=== PATIENT | female | born 1945 | race Caucasian/White ===

== ENCOUNTER 2017-08-29 13:21 | Observation (INO) | payer MEDICARE, OTHER ==
[~2017-08-29] VITALS: Ht 167.6 cm; Wt 49.0 kg
[~2017-08-29 13:21] MED LIST: Z.0.NO CURRENT MEDS
[2017-08-29 13:36] VITALS: BP 167/102; PULSE 110; RESP 22; TEMP 98.7; O2SAT 94
--- NOTE | 2017-08-29 13:44 | PD ---
HPI Chief Complaint: Medical Clearance Time Seen by Provider: 13:41 Travel History International Travel<30 days: No Contact w/Intl Traveler<30days: No Traveled to known affect area: No History of Present Illness HPI 72-year-old female patient presents to the ER today for medical clearance from [facility], apparently is a chronic alcoholic, was found in a pool of her own urine, disoriented, not able to take care of herself at home. She currently has no complaints. Modifying Factors: None Associated Signs & Symptoms: Medical clearance, disorientation Risk Factors: History of alcohol use PFSH Social History Tobacco Use: No Allergies-Medications (Allergen,Severity, Reaction): Coded Allergies: penicillin G (Unverified Allergy, Severe, RASH, 08/29/17) Reported Meds & Prescriptions Reported Meds & Active Scripts Active Review of Systems ROS Limitations: Altered Mental Status Physical Exam Narrative GENERAL: Well-developed pleasant elderly white female patient currently none acute distress. Awake, alert, not oriented. SKIN: Focused skin assessment warm/dry. HEAD: Atraumatic. Normocephalic. EYES: Pupils equal and round. No scleral icterus. No injection or drainage. ENT: No nasal bleeding or discharge. Mucous membranes pink and moist. NECK: Trachea midline. No JVD. CARDIOVASCULAR: Regular rate and rhythm. No murmur appreciated. RESPIRATORY: No accessory muscle use. Clear to auscultation. Breath sounds equal bilaterally. GASTROINTESTINAL: Abdomen soft, non-tender, nondistended. Hepatic and splenic margins not palpable. MUSCULOSKELETAL: No obvious deformities. No clubbing. No cyanosis. Trace pitting edema the legs. NEUROLOGICAL: Awake and alert. No obvious cranial nerve deficits. Motor grossly within normal limits. Normal speech. PSYCHIATRIC: Appropriate mood and affect; insight and judgment normal. Data Data Last Documented VS Vital Signs Date Time Temp Pulse Resp B/P (MAP) Pulse Ox O2 Delivery O2 Flow Rate FiO2 08/29/17 13:46 94 Room Air 08/29/17 13:42 112 22 08/29/17 13:36 98.7 167/102 (123) Orders Orders Electrocardiogram (08/29/17 13:41) Ammonia (08/29/17 13:41) Complete Blood Count With Diff (08/29/17 13:41) Comprehensive Metabolic Panel (08/29/17 13:41) Creatine Kinase (Cpk) (08/29/17 13:41) Troponin I (08/29/17 13:41) Thyroid Stimulating Hormone (08/29/17 13:41) Urinalysis - C+S If Indicated (08/29/17 13:41) Blood Culture (08/29/17 13:41) Chest, Single Ap (08/29/17 13:41) Ct Brain W/O Iv Contrast(Rout) (08/29/17 13:41) Blood Glucose (08/29/17 13:41) Ecg Monitoring (08/29/17 13:41) Iv Access Insert/Monitor (08/29/17 13:41) Oximetry (08/29/17 13:41) Sodium Chloride 0.9% Flush (Ns Flush) (08/29/17 13:45) Drug Screen, Random Urine (08/29/17 13:41) Alcohol (Ethanol) (08/29/17 13:41) Sodium Chlorid 0.9% 500 Ml Inj (Ns 500 M (08/29/17 15:15) Cath For Specimen (08/29/17 16:35) Ceftriaxone Inj (Rocephin Inj) (08/29/17 16:51) Azithromycin Inj (Zithromax Inj) (08/29/17 16:51) Admit Order (Ed Use Only) (08/29/17 17:06) Labs Laboratory Tests Test 08/29/17 13:55 08/29/17 16:45 White Blood Count 12.6 TH/MM3 Red Blood Count 3.61 MIL/MM3 Hemoglobin 13.5 GM/DL Hematocrit 39.3 % Mean Corpuscular Volume 108.6 FL Mean Corpuscular Hemoglobin 37.5 PG Mean Corpuscular Hemoglobin Concent 34.5 % Red Cell Distribution Width 14.9 % Platelet Count 274 TH/MM3 Mean Platelet Volume 7.4 FL Neutrophils (%) (Auto) 81.6 % Lymphocytes (%) (Auto) 6.2 % Monocytes (%) (Auto) 11.6 % Eosinophils (%) (Auto) 0.1 % Basophils (%) (Auto) 0.5 % Neutrophils # (Auto) 10.3 TH/MM3 Lymphocytes # (Auto) 0.8 TH/MM3 Monocytes # (Auto) 1.5 TH/MM3 Eosinophils # (Auto) 0.0 TH/MM3 Basophils # (Auto) 0.1 TH/MM3 CBC Comment DIFF FINAL Differential Comment Blood Urea Nitrogen 9 MG/DL Creatinine 0.48 MG/DL Random Glucose 99 MG/DL Total Protein 7.3 GM/DL Albumin 2.9 GM/DL Calcium Level 8.5 MG/DL Alkaline Phosphatase 147 U/L Aspartate Amino Transf (AST/SGOT) 24 U/L Alanine Aminotransferase (ALT/SGPT) 17 U/L Total Bilirubin 0.5 MG/DL Sodium Level 136 MEQ/L Potassium Level 4.5 MEQ/L Chloride Level 101 MEQ/L Carbon Dioxide Level 24.9 MEQ/L Anion Gap 10 MEQ/L Estimat Glomerular Filtration Rate 128 ML/MIN Ammonia 34 MCMOL/L Total Creatine Kinase 41 U/L Troponin I LESS THAN 0.02 NG/ML Thyroid Stimulating Hormone 3rd Gen 1.390 uIU/ML Ethyl Alcohol Level 16 MG/DL Urine Color YELLOW Urine Turbidity CLOUDY Urine pH 7.5 Urine Specific [place] 1.021 Urine Protein 30 mg/dL Urine Glucose (UA) NEG mg/dL Urine Ketones 10 mg/dL Urine Occult Blood SMALL Urine Nitrite NEG Urine Bilirubin NEG Urine Urobilinogen 8.0 MG/DL Urine Leukocyte Esterase LARGE Urine RBC 25 /hpf Urine WBC /hpf Urine WBC Clumps OCC Urine Squamous Epithelial Cells 1 /hpf Urine Transitional Epithelial Cells 1 /hpf Urine Amorphous Sediment RARE Urine Bacteria MANY /hpf Urine Mucus FEW /lpf Microscopic Urinalysis Comment CATH-CULTURE IND MDM Medical Decision Making Medical Screen Exam Complete: Yes Emergency Medical Condition: Yes Medical Record Reviewed: Yes Interpretation(s) Laboratory Tests Test 08/29/17 13:55 08/29/17 16:45 White Blood Count 12.6 TH/MM3 (4.0-11.0) Red Blood Count 3.61 MIL/MM3 (4.00-5.30) Mean Corpuscular Volume 108.6 FL (80.0-100.0) Mean Corpuscular Hemoglobin 37.5 PG (27.0-34.0) Neutrophils (%) (Auto) 81.6 % (16.0-70.0) Lymphocytes (%) (Auto) 6.2 % (9.0-44.0) Monocytes (%) (Auto) 11.6 % (0.0-8.0) Neutrophils # (Auto) 10.3 TH/MM3 (1.8-7.7) Lymphocytes # (Auto) 0.8 TH/MM3 (1.0-4.8) Monocytes # (Auto) 1.5 TH/MM3 (0-0.9) Creatinine 0.48 MG/DL (0.50-1.00) Albumin 2.9 GM/DL (3.4-5.0) Alkaline Phosphatase 147 U/L (45-117) Ammonia 34 MCMOL/L (11-32) Troponin I LESS THAN 0.02 NG/ML Ethyl Alcohol Level 16 MG/DL (0-5) Urine Turbidity CLOUDY (CLEAR) Urine Protein 30 mg/dL (NEG-TRACE) Urine Ketones 10 mg/dL (NEG) Urine Occult Blood SMALL (NEG) Urine Urobilinogen 8.0 MG/DL (LESS THAN Urine Leukocyte Esterase LARGE (NEG) Urine RBC 25 /hpf (0-3) Urine WBC Clumps OCC (NONE) Urine Bacteria MANY /hpf (NONE) Urine Mucus FEW /lpf (OCC) Last [address] 08/29/17 1341 Signed Impressions: Service Date/Time: Tuesday, August 29, 2017 14:07 - CONCLUSION: No acute intracranial findings Franklyn Blanco MD Chest X-Ray 08/29/17 1341 Signed Impressions: Service Date/Time: Tuesday, August 29, 2017 14:55 - CONCLUSION: Moderate hyperinflation, minimal parenchymal changes left base. Dashawn Summers MD FACR Differential Diagnosis Altered mental status: Dementia versus dehydration versus sepsis versus metabolic issues Narrative Course Patient has no focal neurological deficits. CT scan of the brain is negative. Lab work shows leukocytosis and UTI and chest x-rays showing signs of a left- sided pneumonia. IV antibiotic's were initiated in the ER after cultures are drawn. Plan would be to admit the patient for further treatment. Case is discussed with Dr. Solares for admission. Diagnosis Primary Impression: Altered mental status Additional Impression: UTI (urinary tract infection) Admitting Information Admitting Physician Requests: Admit Scripts No Active Prescriptions or Reported Meds Chandra Crews MD Aug 29, 2017 13:44
[2017-08-29] MEDS ORDERED: SODIUM CHLORIDE 0.9% FLUSH 10 ML FLUSH IV FLUSH PRN (13:45)
[2017-08-29 13:46] VITALS: O2SAT 94
[2017-08-29 14:27] LABS: AUTOMATED NEUTROPHIL # 10.3 TH/MM3 (1.8-7.7); BASOPHIL # 0.1 TH/MM3 (0-0.2); BASOPHIL % 0.5 % (0.0-2.0); EOSINOPHIL % 0.1 % (0.0-4.0); HEMATOCRIT 39.3 % (35.0-46.0); HEMO FLAGS DIFF FINAL; LYMPH % 6.2 % (9.0-44.0); LYMPHOCYTE # 0.8 TH/MM3 (1.0-4.8); MEAN CELL VOLUME 108.6 FL (80.0-100.0); MEAN CORPUSCULAR HEMOGLOBIN 37.5 PG (27.0-34.0); MEAN CORPUSCULAR HGB CONC 34.5 % (32.0-36.0); MONO % 11.6 % (0.0-8.0); NEUT % 81.6 % (16.0-70.0); PLATELET COUNT 274 TH/MM3 (150-450); RED BLOOD COUNT 3.61 MIL/MM3 (4.00-5.30); RED CELL DISTRIBUTION WIDTH 14.9 % (11.6-17.2); WHITE BLOOD COUNT 12.6 TH/MM3 (4.0-11.0)
--- NOTE | 2017-08-29 14:31 | RADRPT ---
EXAM DATE/TIME: 08/29/2017 14:07 [facility] COMPARISON: No previous studies available for comparison. INDICATIONS : Alteration of mental status RADIATION DOSE: 56.35 CTDIvol (mGy) MEDICAL HISTORY : None SURGICAL HISTORY : Appendectomy. ENCOUNTER: Initial ACUITY: 2 days PAIN SCALE: 0/10 LOCATION: cranial TECHNIQUE: Multiple contiguous axial images were obtained of the head. Using automated exposure control and adj ustment of the mA and/or kV according to patient size, radiation dose was kept as low as reasonably a chievable to obtain optimal diagnostic quality images. DICOM format image data is available electro nically for review and comparison. 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 This patchy mild attenuation in periv entricular white matter. There is no evidence of intracranial hemorrhage or mass. There is nothing to suggest acute infarction. Extracranial structures are benign in intact. CONCLUSION: No acute intracranial findings Franklyn Blanco MD on August 29, 2017 at 14:26 Board Certified Radiologist. This report was verified electronically.
--- NOTE | 2017-08-29 15:02 | RADRPT ---
EXAM DATE/TIME: 08/29/2017 14:55 [facility] COMPARISON: No previous studies available for comparison. INDICATIONS : Palpitations. Patient complains of shortness of breath. MEDICAL HISTORY : None. SURGICAL HISTORY : None. ENCOUNTER: Initial ACUITY: 1 day PAIN SCORE: 0/10 LOCATION: Bilateral chest FINDINGS: Moderate hyperinflation with minimal parenchymal changes left base. Negative for pneumothorax.. The cardiomediastinal contours are unremarkable. Osseous structures are intact. CONCLUSION: Moderate hyperinflation, minimal parenchymal changes left base. Dashawn Summers MD FACR on August 29, 2017 at 14:58 Board Certified Radiologist. This report was verified electronically.
[2017-08-29] MEDS ORDERED: SODIUM CHLORID 0.9% 500 ML INJ 500 ML IV ONE (15:15)
[2017-08-29 16:21] LABS: ALCOHOL 16 MG/DL (0-5); ALKALINE PHOSPHATASE 147 U/L (45-117); ALT (GPT) 17 U/L (10-53); ANION GAP 10 MEQ/L (5-15); AST (GOT) 24 U/L (15-37); BICARBONATE 24.9 MEQ/L (21.0-32.0); BLOOD UREA NITROGEN 9 MG/DL (7-18); CHLORIDE 101 MEQ/L (98-107); CREATINE KINASE 41 U/L (26-192); GLOMERULAR FILTRATION RATE 128 ML/MIN (>89); POTASSIUM 4.5 MEQ/L (3.5-5.1); SODIUM (NA) 136 MEQ/L (136-145); TOTAL BILIRUBIN ADULT 0.5 MG/DL (0.2-1.0)
[2017-08-29] MEDS ORDERED: cefTRIAXone INJ 2,000 MG in SODIUM CHLORIDE 0.9% INJ 100 ML IV STA (16:51)
[2017-08-29] MEDS ORDERED: AZITHROMYCIN INJ 500 MG in SODIUM CHLOR 0.9% 250 ML INJ 250 ML IV STA (16:51)
[2017-08-29] MEDS ORDERED: ACETAMINOPHEN 325 MG TAB PO PRN (17:15)
[2017-08-29] MEDS ORDERED: ONDANSETRON HCL 4 MG/2 ML VIAL IV PUSH PRN (17:15)
[2017-08-29] MEDS ORDERED: LORazepam 2 MG/ML VIAL IV PUSH PRN ×4 (17:15)
[2017-08-29] MEDS ORDERED: FLUMAZENIL 0.5 MG/5 ML VIAL IV PUSH PRN (17:15)
[2017-08-29] MEDS ORDERED: LORazepam 1 MG TAB PO PRN (17:15)
[2017-08-29] MEDS ORDERED: LORazepam 2 MG TAB PO PRN (17:15)
[2017-08-29 17:16] LABS: BACTERIA, URINE MANY /hpf; BLOOD, URINE SMALL (NEG); COMMENT (UR) CATH-CULTURE IND; CULTURE IF INDICATED CATH CULTURE IND; GLUCOSE,URINE NEG (NEG); KETONE, URINE 10 mg/dL (NEG); MUCUS URINE FEW /lpf (OCC); NITRITE,URINE NEG (NEG); PH, URINE 7.5 (5.0-8.5); SQUAMOUS EPITHELIAL CELL URINE 1 /hpf (0-5); TRANSITIONAL EPI CELLS, URINE 1 /hpf; URINE COLOR YELLOW (YELLW/STRAW)
[2017-08-29] MEDS ORDERED: SODIUM CHLOR 0.9% 1000 ML INJ 1,000 ML IV ONE (17:30)
--- NOTE | 2017-08-29 17:37 | HHI.HP ---
HPI Service [facility] Primary Care Physician Unknown Admission Diagnosis pneumonia/sepsis/altered mental status Diagnoses: Chief Complaint: was sent to ER from [facility] for medical clearance. Travel History International Travel<30 Days: No Contact w/Intl Traveler <30 Da: No Traveled to Known Affected Are: No History of Present Illness 72-year-old female patient , chronic alcoholic, sent to ER from [facility] for medical clearance. reportedly she drinks one bottle of wine daily. apparently she was found disoriented, sitting in a pool of her urine earlier. at the time of my evaluation she was resting comfortably with no acute distress. she denies any pain, sob,fever, chills,cough, abdominal pain, nausea or urinary complaints. Review of Systems ROS Limitations: Poor Historian Past Family Social History Past Medical History none reported. Past Surgical History none reported. Reported Medications none. Allergies: Coded Allergies: penicillin G (Unverified Allergy, Severe, RASH, 08/29/17) Active Ordered Medications Current Medications Sodium Chloride (NS Flush) 2 ml UNSCH PRN IV FLUSH FLUSH AFTER USING IV ACCESS ; Start 08/29/17 at 13:45 Sodium Chloride 500 ml @ 500 mls/hr BOLUS ONCE IV Last administered on t 15:25; Start 08/29/17 at 15:15; Stop 08/29/17 at 16:14; Status DC Ceftriaxone Sodium 2000 mg/ Sodium Chloride 100 ml @ 200 mls/hr ONCE STAT IV ; Start 08/29/17 at 16:51; Stop 08/29/17 at 17:20 Azithromycin 500 mg/Sodium Chloride 250 ml @ 250 mls/hr ONCE STAT IV ; Start 08/29/17 at 16:51; Stop 08/29/17 at 17:50 Social History drinks one bottle of wine daily; last drink last night- smokes half a pack a day. Physical Exam Vital Signs Vital Signs Date Time Temp Pulse Resp B/P (MAP) Pulse Ox O2 Delivery O2 Flow Rate FiO2 08/29/17 13:46 94 Room Air 08/29/17 13:42 112 22 08/29/17 13:36 98.7 110 22 167/102 (123 94 Physical Exam GENERAL: This is a well-nourished, well-developed patient, in no apparent distress. HEAD: Atraumatic. Normocephalic. No temporal or scalp tenderness. EYES: Pupils equal round and reactive. Extraocular motions intact. No scleral icterus. No injection or drainage. ENT: Nose without bleeding, purulent drainage or septal hematoma. Throat without erythema, tonsillar hypertrophy or exudate. Uvula midline. Airway patent. NECK: Trachea midline. No JVD or lymphadenopathy. Supple, nontender, no meningeal signs. CARDIOVASCULAR: Regular rate and rhythm without murmurs, gallops, or rubs. RESPIRATORY: Clear to auscultation. Breath sounds equal bilaterally. No wheezes , rales, or rhonchi. GASTROINTESTINAL: Abdomen soft, non-tender, nondistended. No hepato-splenomegaly , or palpable masses. No guarding. MUSCULOSKELETAL: Extremities without clubbing, cyanosis, or edema. No joint tenderness, effusion, or edema noted. No calf tenderness. Negative Homans sign bilaterally. NEUROLOGICAL: Awake and alert. oriented to person and place . Laboratory Laboratory Tests Test 08/29/17 13:55 08/29/17 16:45 White Blood Count 12.6 Red Blood Count 3.61 Hemoglobin 13.5 Hematocrit 39.3 Mean Corpuscular Volume 108.6 Mean Corpuscular Hemoglobin 37.5 Mean Corpuscular Hemoglobin Concent 34.5 Red Cell Distribution Width 14.9 Platelet Count 274 Mean Platelet Volume 7.4 Neutrophils (%) (Auto) 81.6 Lymphocytes (%) (Auto) 6.2 Monocytes (%) (Auto) 11.6 Eosinophils (%) (Auto) 0.1 Basophils (%) (Auto) 0.5 Neutrophils # (Auto) 10.3 Lymphocytes # (Auto) 0.8 Monocytes # (Auto) 1.5 Eosinophils # (Auto) 0.0 Basophils # (Auto) 0.1 CBC Comment DIFF FINAL Differential Comment Blood Urea Nitrogen 9 Creatinine 0.48 Random Glucose 99 Total Protein 7.3 Albumin 2.9 Calcium Level 8.5 Alkaline Phosphatase 147 Aspartate Amino Transf (AST/SGOT) 24 Alanine Aminotransferase (ALT/SGPT) 17 Total Bilirubin 0.5 Sodium Level 136 Potassium Level 4.5 Chloride Level 101 Carbon Dioxide Level 24.9 Anion Gap 10 Estimat Glomerular Filtration Rate 128 Ammonia 34 Total Creatine Kinase 41 Troponin I LESS THAN 0.02 Thyroid Stimulating Hormone 3rd Gen 1.390 Ethyl Alcohol Level 16 Urine Color YELLOW Urine Turbidity CLOUDY Urine pH 7.5 Urine Specific [place] 1.021 Urine Protein 30 Urine Glucose (UA) NEG Urine Ketones 10 Urine Occult Blood SMALL Urine Nitrite NEG Urine Bilirubin NEG Urine Urobilinogen 8.0 Urine Leukocyte Esterase LARGE Urine RBC 25 Urine WBC Urine WBC Clumps OCC Urine Squamous Epithelial Cells 1 Urine Transitional Epithelial Cells 1 Urine Amorphous Sediment RARE Urine Bacteria MANY Urine Mucus FEW Microscopic Urinalysis Comment CATH-CULTURE IND Date/Time Source Procedure Growth Status 08/29/17 13:55 Blood Peripheral Aerobic Blood Culture Pending Received 08/29/17 13:55 Blood Peripheral Anaerobic Blood Culture Pending Received 08/29/17 16:45 Urine Catheterized Urine Urine Culture Pending Received Result Diagram: 08/29/17 1355 08/29/17 1355 Imaging Last Impressions Head CT 08/29/17 1341 Signed Impressions: Service Date/Time: Tuesday, August 29, 2017 14:07 - CONCLUSION: No acute intracranial findings Franklyn Blanco MD Chest X-Ray 08/29/17 1341 Signed Impressions: Service Date/Time: Tuesday, August 29, 2017 14:55 - CONCLUSION: Moderate hyperinflation, minimal parenchymal changes left base. Dashawn Summers MD FACR Caprini VTE Risk Assessment Caprini VTE Risk Assessment: Mod/High Risk (score >= 2) Caprini Risk Assessment Model Point Value = 1 Point Value = 2 Point Value = 3 Point Value = 5 Age 41-60 Minor surgery BMI > 25 kg/m2 Swollen legs Varicose veins or History of unexplained or recurrent spontaneous Oral contraceptives or hormone replacement Sepsis (< 1 month) Serious lung disease, including pneumonia (< 1 month) Abnormal pulmonary function Acute myocardial infarction Congestive heart failure (< 1 month) History of inflammatory bowel disease Medical patient at bed rest Age 61-74 Arthroscopic surgery Major open surgery (> 45 min) Laparoscopic surgery (> 45 min) Malignancy Confined to bed (> 72 hours) Immobilizing plaster cast Central venous access Age >= 75 History of VTE Family history of VTE Factor V Leiden Prothrombin [id number] Lupus anticoagulant Anticardiolipin antibodies Elevated serum homocysteine Heparin-induced thrombocytopenia Other congenital or acquired thrombophilia Stroke (< 1 month) Elective arthroplasty Hip, pelvis, or leg fracture Acute spinal cord injury (< 1 month) Prophylaxis Regimen Total Risk Factor Score Risk Level Prophylaxis Regimen 0-1 Low Early ambulation 2 Moderate Order ONE of the following: *Sequential Compression Device (SCD) *Heparin 5000 units SQ BID 3-4 Higher Order ONE of the following medications: *Heparin 5000 units SQ TID *Enoxaparin/Lovenox 40 mg SQ daily (WT < 150 kg, CrCl > 30 mL/min) *Enoxaparin/Lovenox 30 mg SQ daily (WT < 150 kg, CrCl > 10-29 mL/min) *Enoxaparin/Lovenox 30 mg SQ BID (WT < 150 kg, CrCl > 30 mL/min) AND/OR *Sequential Compression Device (SCD) 5 or more Highest Order ONE of the following medications: *Heparin 5000 units SQ TID (Preferred with Epidurals) *Enoxaparin/Lovenox 40 mg SQ daily (WT < 150 kg, CrCl > 30 mL/min) *Enoxaparin/Lovenox 30 mg SQ daily (WT < 150 kg, CrCl > 10-29 mL/min) *Enoxaparin/Lovenox 30 mg SQ BID (WT < 150 kg, CrCl > 30 mL/min) AND *Sequential Compression Device (SCD) Assessment and Plan Assessment and Plan A/P 72 y/o female, chronic alcoholic, who was referred to ER from [facility] for medical clearance; - alcohol abuse watch for withdrawal- start on CIWA protocol- start on thiamine/ multivitamin. advised to stop drinking. -UTI start on Levaquin and follow the culture. -questionable LLL pneumonia start on Levaquin- follow the cultures- will monitor temps- repeat CBC in am. -consult PT -consult case management to assist with dc planning. -DVT prophylaxis with SCD's Discussed Condition With ER physician and the patient. Salomón Chen MD Aug 29, 2017 17:37
[2017-08-29 17:57] VITALS: BP 144/82; PULSE 105; RESP 20; O2SAT 95
[2017-08-29] MEDS: LEVOFLOXACIN 250 MG PREMIX INJ 50 ML IV SCH (17:59)
[2017-08-29 18:47] VITALS: BP 160/91; PULSE 113; RESP 16; TEMP 98.3; O2SAT 93
[2017-08-29] MEDS: THIAMINE HCL 100 MG TAB PO SCH (19:02)
[2017-08-29 20:35] VITALS: BP 153/91; PULSE 109; RESP 20; TEMP 97.8; O2SAT 94
[2017-08-30 00:19] VITALS: BP 159/89; PULSE 109; RESP 20; TEMP 98; O2SAT 94
[2017-08-30 03:41] VITALS: BP 145/93; PULSE 106; RESP 20; TEMP 98; O2SAT 93
[2017-08-30 07:25] VITALS: BP 149/84; PULSE 97; RESP 18; TEMP 98.1; O2SAT 94
[2017-08-30] MEDS: THIAMINE HCL 100 MG TAB PO SCH (08:50)
[2017-08-30] MEDS: MULTIVITAMIN TAB PO SCH (08:50)
[2017-08-30 10:25] LABS: AUTOMATED NEUTROPHIL # 5.6 TH/MM3 (1.8-7.7); BASOPHIL % 0.4 % (0.0-2.0); EOSINOPHIL % 0.6 % (0.0-4.0); HEMATOCRIT 38.2 % (35.0-46.0); HEMO FLAGS DIFF FINAL; LYMPH % 12.8 % (9.0-44.0); MEAN CELL VOLUME 109.8 FL (80.0-100.0); MEAN CORPUSCULAR HEMOGLOBIN 37.8 PG (27.0-34.0); MEAN CORPUSCULAR HGB CONC 34.4 % (32.0-36.0); MONO % 13.6 % (0.0-8.0); NEUT % 72.6 % (16.0-70.0); PLATELET COUNT 238 TH/MM3 (150-450); RED BLOOD COUNT 3.48 MIL/MM3 (4.00-5.30); RED CELL DISTRIBUTION WIDTH 15.2 % (11.6-17.2); WHITE BLOOD COUNT 7.7 TH/MM3 (4.0-11.0)
[2017-08-30 11:40] VITALS: BP 157/85; PULSE 99; RESP 18; TEMP 97.8; O2SAT 96
--- NOTE | 2017-08-30 11:40 | HHI.PR ---
Subjective Remarks Pt feels better. states that she fell because she was drinking. states she drinks 2 sometimes 3 glasses of wine a day. denies any burning w urination or increase urinary frequency. Objective Vitals Vital Signs Date Time Temp Pulse Resp B/P (MAP) Pulse Ox O2 Delivery O2 Flow Rate FiO2 08/30/17 07:25 98.1 97 18 149/84 (105) 94 08/30/17 03:41 98.0 106 20 145/93 (110) 93 08/30/17 00:19 98.0 109 20 159/89 (112) 94 08/29/17 20:35 97.8 109 20 153/91 (111) 94 08/29/17 18:47 98.3 113 16 160/91 (114) 93 08/29/17 17:57 105 20 144/82 (102) 95 Room Air 08/29/17 13:46 94 Room Air 08/29/17 13:42 112 22 08/29/17 13:36 98.7 110 22 167/102 (123) 94 I/O 08/29/17 08/29/17 08/29/17 08/30/17 08/30/17 08/30/17 07:00 15:00 23:00 07:00 15:00 23:00 Intake Total 500 ml 200 ml Balance 500 ml 200 ml Intake IV Total 500 ml 200 ml # Voids 3 # Bowel Movements 2 Result Diagram: 08/30/17 0915 08/29/17 1355 Imaging Last Impressions Head CT 08/29/17 1341 Signed Impressions: Service Date/Time: Tuesday, August 29, 2017 14:07 - CONCLUSION: No acute intracranial findings Franklyn Blanco MD Chest X-Ray 08/29/17 1341 Signed Impressions: Service Date/Time: Tuesday, August 29, 2017 14:55 - CONCLUSION: Moderate hyperinflation, minimal parenchymal changes left base. Dashawn Summers MD FACR Objective Remarks GENERAL: laying in bed ENT: Nose without drainage. Airway patent. NECK: Trachea midline. CARDIOVASCULAR: Regular rate and rhythm without murmurs RESPIRATORY: some exp wheezing noted, pt also had a mild cough during exam GASTROINTESTINAL: Abdomen soft, non-tender, nondistended. No guarding. MUSCULOSKELETAL: Extremities without edema. No calf tenderness. Negative Homans sign bilaterally. NEUROLOGICAL: Awake and alert. answers my questions. sitter at bedside A/P Assessment and Plan 72 y/o female, chronic alcoholic, who was referred to ER from [facility] for medical clearance; - alcohol abuse watch for withdrawal- on CIWA protocol- on thiamine/folate/multivitamin. Pt has been advised to stop drinking. -UTI on Levaquin and follow cultures. -questionable LLL pneumonia. Pt is coughing and had some wheezing today on Levaquin- follow blood cultures- will monitor temps- added duonebs. Leukocytosis resolved -consult PT- pt uses a cane at home. -consult case management to assist with dc planning. -DVT prophylaxis with SCD's Discharge Planning f/u urine and blood cx. awaiting PT eval. continue medical management. Anticipate d/c in AM if blood cx neg. Korina Arvizu MD Aug 30, 2017 11:40
[2017-08-30] MEDS ORDERED: RESP: ALBUTEROL 2.5 MG/IPRATROPIUM 0.5 MG NEB (PRN) NEB (11:45)
[2017-08-30] MEDS: FOLIC ACID 1 MG TAB PO SCH (12:49)
[2017-08-30 15:33] VITALS: BP 148/80; PULSE 108; RESP 18; TEMP 98.2; O2SAT 95
--- NOTE | 2017-08-30 15:46 | EKG ---
Date Performed: 08/29/2017 Time Performed: 14:43:05 PTAGE: 72 years EKG: SINUS TACHYCARDIA ABNORMAL RHYTHM ECG NO PREVIOUS TRACING DOCTOR: Wesley Renee Interpretating Date/Time 08/30/2017 15:44:59
[2017-08-30] MEDS: LEVOFLOXACIN 250 MG PREMIX INJ 50 ML IV SCH (17:39)
[2017-08-30 20:00] VITALS: BP 140/95; PULSE 111; RESP 20; TEMP 97.7; O2SAT 96
[2017-08-31] VITALS (7 sets, daily range): BP systolic 102–150; BP diastolic 58–82; PULSE 68–107; RESP 16–20; TEMP 97.3–98.7; O2SAT 91–97
[2017-08-31] MEDS ORDERED: guaiFENesin E.R. 600 MG TAB PO ONE (10:00)
[2017-08-31] MEDS: FOLIC ACID 1 MG TAB PO SCH (10:50)
[2017-08-31] MEDS: THIAMINE HCL 100 MG TAB PO SCH (10:50)
[2017-08-31] MEDS: MULTIVITAMIN TAB PO SCH (10:50)
--- NOTE | 2017-08-31 12:18 | HHI.PR ---
Subjective Remarks Written by Yanique Kern, acting as scribe for Dr. Paula on 08/31/17 at 12: 18. Follow-up on patient status post fall, alcohol abuse. Patient seen and examined. Patient states she feels well today. She denies any acute medical complaints. Denies any headache, vision changes or dizziness. Denies any chest pain or shortness of breath. Denies any nausea, vomiting or abdominal pain. Tolerating diet well. She admits that she drinks too much and has done so since she was a teenager. She denies any urinary difficulties, diarrhea or constipation. She lives with her and they help to take care of each other. Objective Vitals Vital Signs Date Time Temp Pulse Resp B/P (MAP) Pulse Ox O2 Delivery O2 Flow Rate FiO2 08/31/17 08:37 97.8 82 18 135/74 (94) 97 08/31/17 04:00 98.0 103 20 148/82 (104) 95 08/31/17 00:00 97.7 107 20 119/65 (83) 94 08/30/17 20:00 97.7 111 20 140/95 (110) 96 08/30/17 15:33 98.2 108 18 148/80 (102) 95 I/O 08/30/17 08/30/17 08/30/17 08/31/17 08/31/17 08/31/17 06:59 14:59 22:59 06:59 14:59 22:59 Intake Total 200 ml 240 ml Balance 200 ml 240 ml Intake Oral 240 ml IV Total 200 ml # Voids 3 2 2 # Bowel Movements 2 2 Result Diagram: 08/30/1715 08/29/17 1355 Imaging Last Impressions Head CT 08/29/17 1341 Signed Impressions: Service Date/Time: Tuesday, August 29, 2017 14:07 - CONCLUSION: No acute intracranial findings Franklyn Blanco MD Chest X-Ray 08/29/17 1341 Signed Impressions: Service Date/Time: Tuesday, August 29, 2017 14:55 - CONCLUSION: Moderate hyperinflation, minimal parenchymal changes left base. Dashawn Summers MD FACR Objective Remarks GENERAL: Well-nourished, well-developed patient in NAD. Awake and alert. Sitting up in bed eating breakfast. Sitter at the bedside. SKIN: Warm and dry. No rash. HEAD: Normocephalic. Atraumatic. EYES: EOMI. No scleral icterus. No injection or drainage. ENT: No nasal bleeding or discharge. Mucous membranes pink and moist. NECK: Supple. Trachea midline. CARDIOVASCULAR: Regular rate and rhythm. S1, S2 noted. No murmur appreciated. RESPIRATORY: Nonlabored. Clear to auscultation. Breath sounds equal bilaterally. GASTROINTESTINAL: Abdomen soft, non-tender, nondistended. Normoactive bowel sounds x4. MUSCULOSKELETAL: No obvious deformities. Extremities without clubbing, cyanosis , or edema. NEUROLOGICAL: Awake and alert. No obvious cranial nerve deficits. Motor grossly within normal limits. 5/5 muscle strength in bilateral upper and lower extremities. Normal speech. PSYCHIATRIC: Appropriate mood and affect; insight and judgment normal. Medications and IVs Current Medications Medications (Trade) Dose Ordered Sig/Jerson Route Start Time Stop Time Status Last Admin (NS Flush) 2 ml UNSCH PRN IV FLUSH 08/29/17 13:45 (Romazicon Inj) 0.2 mg Q1M PRN IV PUSH 08/29/17 17:15 (Ativan) 1 mg Q4H PRN PO 08/29/17 17:15 (Ativan Inj) 1 mg Q4H PRN IV PUSH 08/29/17 17:15 (Ativan) 2 mg Q2H PRN PO 08/29/17 17:15 (Ativan Inj) 2 mg Q2H PRN IV PUSH 08/29/17 17:15 (Ativan Inj) 2 mg Q1H PRN IV PUSH 08/29/17 17:15 (Ativan Inj) 2 mg Q15M PRN IV PUSH 08/29/17 17:15 Levofloxacin/ Dextrose 50 ml @ 50 mls/hr Q24H IV 08/29/17 18:00 08/30/17 17:39 (Tylenol) 650 mg Q4H PRN PO 08/29/17 17:15 (Zofran Inj) 4 mg Q8H PRN IV PUSH 08/29/17 17:15 (Vitamin B1) 100 mg DAILY PO 08/29/17 18:00 08/31/17 10:50 (Theragran) 1 tab DAILY PO 08/30/17 09:00 08/31/17 10:50 (Folate) 1 mg DAILY PO 08/30/17 11:45 08/31/17 10:50 (Duoneb Neb) 1 ampule Q6HR NEB PRN NEB 08/30/17 11:45 (Mucinex Er) 600 mg BID PO 08/31/17 21:00 A/P Problem List: (1) Alcohol abuse ICD Code: F10.10 - Alcohol abuse, uncomplicated (2) UTI (urinary tract infection) ICD Code: N39.0 - Urinary tract infection, site not specified Status: Acute (3) Physical deconditioning ICD Code: R53.81 - Other malaise Assessment and Plan 72 y/o female, chronic alcoholic, who was referred to ER from [facility] for medical clearance; Alcohol abuse Bonilla acted - on [facility] protocol - No s/sxs of withdrawal - Continue thiamine, multivitamin and folic acid daily - Patient advised on complete alcohol abstinence - continue with PT who recommends home with home health PT - patient under BA, Psychiatry consulted to see if BA can be lifted and patient discharged to home CAP - Suspect left lower lobe pneumonia - Treated with Levaquin. Plan to discharge on Cipro 500mg BID x 5 days - Blood cultures show no growth in 2 days - Mucinex ER 600mg BID UTI - Urine culture positive for Klebsiella pansensitive - Begin Cipro Macrocytosis - Secondary to alcohol consumption/abuse DVT prophylaxis - early ambulation - Bilateral ATUL/SCDs Discharge patient to home with home health care PT Condition on discharge: Improved Regular Diet as tolerated Strongly advised on complete alcohol abstinence Ad Jeni activity Rx written: Cipro 500mg BID Follow-up with primary care physician in one week This note was transcribed by noreen Kern. I, Dr. Avtar Paula personally performed the history, physical exam, and medical decision making; and confirmed the accuracy of the information in the transcribed note. Authenticated by Dr. Avtar Paula on 08/31/17 at 12:18. Discharge Planning Discharge pending psych clearance Yanique Kern Aug 31, 2017 12:18 Avtar Paula MD Aug 31, 2017 12:19
--- NOTE | 2017-08-31 13:24 | HHI.FF ---
Face to Face Verification Diagnosis: (1) Physical deconditioning Physical Therapy Order: Evaluate and Treat, Improve ambulation, Strength and gait training I have seen patient Nathalie Yee on 08/31/17. My clinical findings support the need for the requested home health care services because: Deconditioned w/ increased weakness Limited ability to care for self High risk of falls I certify that my clinical findings support that this patient is homebound because: Unsteady gait/balance Unsafe to leave home unassisted Unable to use public transportation Yanique Kern Aug 31, 2017 13:24
[2017-08-31] MEDS ORDERED: THERTAB15 PO (13:33)
[2017-08-31] MEDS ORDERED: THIA100 PO (13:33)
[2017-08-31] MEDS ORDERED: guaiFENesin ER PO (13:33)
[2017-08-31] MEDS ORDERED: CIPR-9 PO (13:33)
[2017-08-31] MEDS ORDERED: FOLI1TAB6 PO (13:33)
--- NOTE | 2017-08-31 13:34 | HHI.DCPOC ---
Discharge Care Plan Diagnosis: (1) Community acquired pneumonia (2) UTI (urinary tract infection) (3) Physical deconditioning (4) Alcohol abuse (5) Altered mental status Goals to Promote Your Health * To prevent worsening of your condition and complications * To maintain your health at the optimal level Directions to Meet Your Goals Please abstain from all alcohol consumption Take your medications as prescribed Follow your dietary instruction Follow activity as directed Keep your appointments as scheduled Take your immunizations and boosters as scheduled If your symptoms worsen call your PCP, if no PCP go to Urgent Care Center or Emergency Room Smoking is Dangerous to Your Health. Avoid second hand smoke Call the 24-hour hour crisis hotline for domestic abuse at Yanique Kern Aug 31, 2017 13:34
[2017-08-31] MEDS: LEVOFLOXACIN 250 MG PREMIX INJ 50 ML IV SCH (18:00)
[2017-08-31] MEDS: CIPROFLOXACIN 500 MG TAB PO SCH (22:34)
[2017-08-31] MEDS: guaiFENesin E.R. 600 MG TAB PO SCH (22:35)
[2017-09-01 00:47] VITALS: RESP 16; O2SAT 93
[2017-09-01 02:00] VITALS: RESP 16; O2SAT 97
[2017-09-01 04:17] VITALS: BP 144/83; PULSE 91; RESP 18; TEMP 98.3; O2SAT 97
[2017-09-01 08:20] VITALS: BP 126/75; PULSE 88; RESP 22; TEMP 98; O2SAT 96
[2017-09-01] MEDS: guaiFENesin E.R. 600 MG TAB PO SCH (10:21)
[2017-09-01] MEDS: FOLIC ACID 1 MG TAB PO SCH (10:21)
[2017-09-01] MEDS: THIAMINE HCL 100 MG TAB PO SCH (10:21)
[2017-09-01] MEDS: CIPROFLOXACIN 500 MG TAB PO SCH (10:22)
[2017-09-01] MEDS: MULTIVITAMIN TAB PO SCH (10:22)
[2017-09-01 12:39] VITALS: BP 138/77; PULSE 92; RESP 22; TEMP 97.6; O2SAT 96
--- NOTE | 2017-09-01 13:41 | HHI.PR ---
Subjective Remarks Follow-up on patient status post fall, alcohol abuse. 08/31/17- Patient seen and examined. Patient states she feels well today. She denies any acute medical complaints. Denies any headache, vision changes or dizziness. Denies any chest pain or shortness of breath. Denies any nausea, vomiting or abdominal pain. Tolerating diet well. She admits that she drinks too much and has done so since she was a teenager. She denies any urinary difficulties, diarrhea or constipation. She lives with her and they help to take care of each other. 09/01/17-patient seen and examined, stable and no complaints. Awaiting for evaluation from psychiatry. Sitter in the room Objective Vitals Vital Signs Date Time Temp Pulse Resp B/P (MAP) Pulse Ox O2 Delivery O2 Flow Rate FiO2 09/01/17 12:39 97.6 92 22 138/77 (97) 96 09/01/17 08:20 98.0 88 22 126/75 (92) 96 09/01/17 04:17 98.3 91 18 144/83 (103) 97 09/01/17 02:00 16 97 09/01/17 00:47 93 Nasal Cannula 2.00 09/01/17 00:47 16 93 08/31/17 23:18 98.7 68 18 102/58 (73) 91 08/31/17 20:31 98.2 78 18 108/63 (78) 92 08/31/17 16:28 97.3 96 16 148/82 (104) 95 I/O 08/31/17 08/31/17 08/31/17 09/01/17 09/01/17 09/01/17 07:00 15:00 23:00 07:00 15:00 23:00 Intake Total 240 ml 240 ml Balance 240 ml 240 ml Intake Oral 240 ml 240 ml # Voids 2 2 # Bowel Movements 0 Result Diagram: 08/30/17 0915 08/29/17 1355 Imaging Last Impressions Head CT 08/29/17 1341 Signed Impressions: Service Date/Time: Tuesday, August 29, 2017 14:07 - CONCLUSION: No acute intracranial findings Franklyn Blanco MD Chest X-Ray 08/29/17 1341 Signed Impressions: Service Date/Time: Tuesday, August 29, 2017 14:55 - CONCLUSION: Moderate hyperinflation, minimal parenchymal changes left base. Dashawn Summers MD FACR Objective Remarks GENERAL: NAD SKIN: Warm and dry. HEAD: Normocephalic. EYES: No scleral icterus. No injection or drainage. NECK: Supple, trachea midline. No JVD or lymphadenopathy. CARDIOVASCULAR: Regular rate and rhythm without murmurs, gallops, or rubs. RESPIRATORY: Breath sounds equal bilaterally. No accessory muscle use. GASTROINTESTINAL: Abdomen soft, non-tender, nondistended. MUSCULOSKELETAL: No cyanosis, or edema. BACK: Nontender without obvious deformity. No CVA tenderness. A/P Problem List: (1) Alcohol abuse ICD Code: F10.10 - Alcohol abuse, uncomplicated (2) UTI (urinary tract infection) ICD Code: N39.0 - Urinary tract infection, site not specified Status: Acute (3) Physical deconditioning ICD Code: R53.81 - Other malaise Assessment and Plan 72 y/o female, chronic alcoholic, who was referred to ER from [facility] for medical clearance; Alcohol abuse - on [facility] protocol - No s/sxs of withdrawal - Continue thiamine, multivitamin and folic acid daily - Patient advised on complete alcohol abstinence - continue with PT who recommends home with home health PT - Patient is currently Bonilla acted, awaiting for recommendation from psychiatry CAP - Suspect left lower lobe pneumonia - Treated with Levaquin. Plan to discharge on Cipro 500mg BID x 5 days - Blood cultures show no growth in 3 days - Mucinex ER 600mg BID UTI - Urine culture positive for Klebsiella pansensitive - Continue Cipro Macrocytosis - Secondary to alcohol consumption/abuse DVT prophylaxis - early ambulation - Bilateral ATUL/SCDs Avtar Paula MD Sep 01, 2017 13:40
--- NOTE | 2017-09-01 14:54 | HHI.FF ---
Face to Face Verification Diagnosis: (1) Alcohol abuse (2) Physical deconditioning (3) Community acquired pneumonia (4) UTI (urinary tract infection) Physical Therapy Order: Evaluate and Treat, Improve ambulation Home Health Nursing Order: Medical education Signs/symptoms of disease process Nursing assessment with vital signs Pearl Restorer Order: To Evaluate: Living conditions/environment, Support services Order: To Provide: Long range planning, Community services I have seen patient Nathalie Yee on 09/01/17. My clinical findings support the need for the requested home health care services because: Ltd mobility - disease progression Deconditioned w/ increased weakness Med compliance is questionable Limited ability to care for self Need for psychosocial assistance High risk of falls I certify that my clinical findings support that this patient is homebound because: Unsteady gait/balance Unsafe to leave home unassisted Need for psychosocial assistance Unable to use public transportation Alisha Peña PA-C Sep 01, 2017 14:54
[2017-09-01 16:33] VITALS: BP 141/70; PULSE 97; RESP 18; TEMP 97.5; O2SAT 95
== END 2017-09-01 16:35 | disposition home or self-care (01) ==
LOC: NEPD 13:21 → NEDA 17:07 → NEPHCDU 18:43
PROVIDERS: ADMIT Hospitalist; ATTEND Hospitalist
DX: F10.10 Alcohol abuse, uncomplicated (principal); N39.0 Urinary tract infection, site not specified; J18.9 Pneumonia, unspecified organism; B96.1 Klebsiella pneumoniae [K. pneumoniae] as the cause of diseases classified elsewhere; D75.89 Other specified diseases of blood and blood-forming organs; R00.0 Tachycardia, unspecified; R06.02 Shortness of breath; R00.2 Palpitations; F17.200 Nicotine dependence, unspecified, uncomplicated
CPT/HCPCS: 70450; 71010; 80053; 80307; 81001; 82140; 82550; 82607; 84443; 84484; 85025; 85610; 86592; 87040; 87077; 87086; 87186; 93005; 94640; 94664; 96361; 96365; 97162; 99285; G0378; G8987; G8988; J1956; J7030; J7040; P9612